=== PATIENT | female | born 1985 | race Two or more races ===

== ENCOUNTER 2019-04-27 13:54 | Emergency (ER) | payer OTHER ==
[2019-04-27 15:13] VITALS: BP 119/63
[2019-04-27] MEDS ORDERED: ZIDOVUDINE PO STA (15:21)
[2019-04-27] MEDS ORDERED: ZIDOVUDINE 300 MG TAB PO ONE (15:45)
[2019-04-29 09:45] LABS: Hepatitis B Surface Antibody Positive
[2019-04-29 11:37] LABS: Hepatitis B Surface Antigen Negative (Negative)
== END 2019-04-27 16:04 | disposition home or self-care (01) ==
LOC: ER 14:07
DX: S61.233A Puncture wound without foreign body of left middle finger without damage to nail, initial encounter (principal); W27.3XXA Contact with needle (sewing), initial encounter; Y93.89 Activity, other specified; Y92.69 Other specified industrial and construction area as the place of occurrence of the external cause; Y99.8 Other external cause status
CPT/HCPCS: 36415; 86703; 86706; 86803; 87340

== ENCOUNTER → 2019-06-08 | Outpatient (CLI) | payer OTHER ==
[2019-06-10 16:35] LABS: Hepatitis B Surface Antibody Positive
[2019-06-10 17:20] LABS: Hepatitis B Surface Antigen Negative (Negative)
== END | disposition home or self-care (01) ==
LOC: LAB 09:15
PROVIDERS: ATTEND Nurse Practitioner
DX: Z77.21 Contact with and (suspected) exposure to potentially hazardous body fluids (principal); W46.1XXA Contact with contaminated hypodermic needle, initial encounter; Y93.89 Activity, other specified; Y92.89 Other specified places as the place of occurrence of the external cause; Y99.8 Other external cause status
CPT/HCPCS: 36415; 86703; 86706; 86803; 87340

== ENCOUNTER 2019-08-23 07:44 | Emergency (ER) | payer MEDICAID, OTHER ==
[~2019-08-23] VITALS: Ht 157.5 cm; Wt 95.3 kg
[2019-08-23 08:22] LABS: Basophils # (auto) 0 uL; Basophils % (auto) 0.7 % (0.0-2.0); Eosinophils # (auto) 0.1 uL; Eosinophils % (auto) 1.6 % (0.0-7.0); Hematocrit 40.4 % (36.0-46.0); Hemoglobin 13.5 g/dL (12.2-16.2); Lymphocytes # (auto) 1.2 uL; Lymphocytes % (auto) 22.3 % (10.0-50.0); Mean Corpuscular Hemoglobin 27.2 pg (28.0-32.0); Mean Corpuscular Hgb Conc. 33.5 g/dL (32.0-36.0); Mean Corpuscular Volume 81.1 fL (80.0-100.0); Monocytes # (auto) 0.4 uL; Monocytes % (auto) 6.7 % (0.0-12.0); Neutrophils # (auto) 3.7 uL; Neutrophils % (auto) 68.7 % (37.0-80.0); Platelet Count (auto) 174 10^3/uL (140-450); Red Blood Cells 4.98 10^6/uL (4.0-5.20); Red Cell Distribution Width 14.3 % (11.8-14.3); White Blood Cell 5.4 10^3/uL (4.4-10.8)
[2019-08-23 08:39] LABS: Albumin 3.6 g/dL (3.4-5.0); Anion Gap 5 (5-15); Blood Urea Nitrogen 7 mg/dL (7-18); Carbon Dioxide 23 mmol/L (21-32); Chloride 110 mmol/L (98-107); Glucose 87 mg/dL (74-106); Potassium 3.9 mmol/L (3.5-5.1); Sodium 138 mmol/L (136-145)
[2019-08-23 08:40] LABS: Partial Thromboplastin Time 28.1 sec (23.64-32.05)
[2019-08-23 08:43] LABS: Alanine Aminotransferase 25 U/L (13-56); Alkaline Phosphatase 67 U/L (45-117); Aspartate Aminotransferase 13 U/L (15-37); BUN/Creatinine Ratio 12.5; Bilirubin, Total 0.5 mg/dL (0.2-1.0); GFR African American 161 mL/min; GFR Non-African American 133 mL/min; Total Protein 7.7 g/dL (6.4-8.2)
[2019-08-23 09:15] LABS: Urine Bacteria FEW /hpf (None Seen); Urine Blood Negative /uL (Negative); Urine Mucus FEW (None Seen); Urine Specific Gravity 1.016 (1.001-1.035); Urine WBC <1 /hpf (0 - 5)
[2019-08-23 11:27] VITALS: BP 121/78
[2019-08-23] MEDS ORDERED: IBUPROFEN 800 MG TAB PO ONE (11:30)
== END 2019-08-23 11:38 | disposition home or self-care (01) ==
LOC: ER 07:49
DX: R07.89 Other chest pain (principal); M67.912 Unspecified disorder of synovium and tendon, left shoulder; R11.0 Nausea; R19.7 Diarrhea, unspecified
CPT/HCPCS: 36415; 71046; 80053; 81001; 84484; 85025; 85610; 85730; 93005

== ENCOUNTER → 2019-10-01 | Outpatient (CLI) | payer OTHER ==
[2019-10-01 21:34] LABS: Hepatitis B Surface Antibody Positive
[2019-10-01 22:13] LABS: Hepatitis B Surface Antigen Negative (Negative)
== END | disposition home or self-care (01) ==
LOC: LAB 14:30
PROVIDERS: ATTEND Nurse Practitioner
DX: Z77.21 Contact with and (suspected) exposure to potentially hazardous body fluids (principal); W46.1XXA Contact with contaminated hypodermic needle, initial encounter
CPT/HCPCS: 36415; 86703; 86706; 86803; 87340

== ENCOUNTER 2020-02-25 22:22 | Emergency (ER) | payer MEDICAID, OTHER ==
[~2020-02-25] VITALS: Ht 157.5 cm; Wt 96.2 kg
[2020-02-25 23:12] LABS: Urine Bacteria NONE SEEN /hpf (None Seen); Urine Blood Negative /uL (Negative); Urine Specific Gravity 1.006 (1.001-1.035); Urine WBC 1 /hpf (0 - 5)
[2020-02-26 01:53] LABS: Basophils # (auto) 0 10 ^3/uL (0-0.2); Basophils % (auto) 0.6 % (0.0-2.0); Eosinophils # (auto) 0.1 10 ^3/uL (0-0.8); Eosinophils % (auto) 1.6 % (0.0-7.0); Hematocrit 41.4 % (36.0-46.0); Hemoglobin 13.7 g/dL (12.2-16.2); Lymphocytes % (auto) 30.8 % (10.0-50.0); Mean Corpuscular Hemoglobin 26.7 pg (28.0-32.0); Mean Corpuscular Hgb Conc. 33.1 g/dL (32.0-36.0); Mean Corpuscular Volume 80.8 fL (80.0-100.0); Monocytes # (auto) 0.4 10 ^3/uL (0-1.3); Monocytes % (auto) 6.3 % (0.0-12.0); Neutrophils # (auto) 3.9 10 ^3/uL (1.6-8.6); Neutrophils % (auto) 60.7 % (37.0-80.0); Nucleated Red Blood Cells % 0.1 %; Platelet Count (auto) 190 10^3/uL (140-450); Red Blood Cells 5.12 10^6/uL (4.0-5.20); Red Cell Distribution Width 14.6 % (11.8-14.3); White Blood Cell 6.5 10^3/uL (4.4-10.8)
[2020-02-26 02:12] LABS: Albumin 3.8 g/dL (3.4-5.0); BUN/Creatinine Ratio 7.1; Calcium 8.5 mg/dL (8.5-10.1); Potassium 3.8 mmol/L (3.5-5.1)
[2020-02-26 02:14] LABS: Bilirubin, Total 0.4 mg/dL (0.2-1.0); Total Protein 7.5 g/dL (6.4-8.2)
[2020-02-26 02:42] VITALS: BP 140/84
[2020-02-26] MEDS ORDERED: ACETAMINOPHEN 325 MG TAB PO ONE (02:45)
== END 2020-02-26 03:05 | disposition home or self-care (01) ==
LOC: EDBD 22:22 → ER 22:22
DX: N85.4 Malposition of uterus (principal); K59.00 Constipation, unspecified
CPT/HCPCS: 36415; 76830; 76856; 80053; 81001; 84702; 85025

== ENCOUNTER → 2020-04-07 | Outpatient (CLI) | payer OTHER ==
[2020-04-10 09:32] LABS: Hepatitis B Surface Antibody Positive
[2020-04-10 10:47] LABS: Hepatitis B Surface Antigen Negative (Negative)
== END | disposition home or self-care (01) ==
LOC: LAB 09:10
PROVIDERS: ATTEND Nurse Practitioner
DX: Z77.21 Contact with and (suspected) exposure to potentially hazardous body fluids (principal)
CPT/HCPCS: 36415; 86703; 86706; 86803; 87340